=== PATIENT | male | born 1960 | race Caucasian/White ===

== ENCOUNTER 2021-01-27 10:48 | Outpatient (CLI) | payer OTHER | END 2021-01-27 11:54 | disposition home or self-care (01) | LOC: TOM 10:48 | PROVIDERS: ATTEND Specialist | DX: Q66.222 Congenital metatarsus adductus, left foot (principal); M19.079 Primary osteoarthritis, unspecified ankle and foot; R07.89 Other chest pain ==

== ENCOUNTER 2025-07-15 00:28 | Emergency (ER) | payer OTHER ==
[~2025-07-15] VITALS: Ht 177.8 cm; Wt 81.6 kg
[2025-07-15] MEDS ORDERED: CARDIZEM30 MG (00:31)
[2025-07-15] MEDS ORDERED: KETOROLAC TROMETHAMINE 60 MG VIAL IM STA (03:23)
[2025-07-15] MEDS ORDERED: KETOROLAC TROMETHAMINE 60 MG VIAL IM ONE (03:28)
[2025-07-15] MEDS ORDERED: KETO10TA2 PO (04:19)
== END 2025-07-15 04:48 | disposition home or self-care (01) ==
LOC: ER 00:39
DX: G89.11 Acute pain due to trauma (principal); M25.571 Pain in right ankle and joints of right foot; I10 Essential (primary) hypertension
CPT/HCPCS: 73560; 73600; 96372; 99283; J1885